=== PATIENT | female | born 1960 | race Caucasian/White ===

== ENCOUNTER 2020-10-19 06:42 | Emergency (ER) | payer OTHER ==
[~2020-10-19] VITALS: Ht 167.6 cm; Wt 90.7 kg
[~2020-10-19 06:42] MED LIST: ACETAMINOPHEN325 M1 PO; AUGMENTIN 875875 M1 PO; B-100 COMPLEX1 EAC1 PO; CALICUM 500+D1 EACH PO; COLACE 100 MG100 MG PO; COMBIVENT INH; FRUIT C-100100 MG PO; HYDROCODON-ACE1 EAC7 PO; LIPITOR80 MG PO; MULTIVITAMINS1 EAC7 PO; NIACIN 100MG T100 M1 PO; VITAMIN C 250250 MG PO
[2020-10-19] MEDS ORDERED: HYDROCODON-ACE1 EAC7 PO (08:08)
[2020-10-19 08:51] VITALS: BP 153/104
--- NOTE | 2020-10-19 09:05 | NUR ---
cm spk w/pt to explain hh process. pt agreeable to use [facility]. cm copied pt insurance card and sent required documents to [facility] [phone]. cm provided pt w/[facility] to schedule pcp appt, as pt's pcp "[place]." [phone]. pt informed [facility] will contact her directly to arrange visits.
== END 2020-10-19 08:51 | disposition home or self-care (01) ==
LOC: M.ERS 06:42
DX: S93.491A Sprain of other ligament of right ankle, initial encounter (principal); E78.00 Pure hypercholesterolemia, unspecified; Z90.49 Acquired absence of other specified parts of digestive tract; Z88.8 Allergy status to other drugs, medicaments and biological substances; W07.XXXA Fall from chair, initial encounter; Y93.89 Activity, other specified; Y92.89 Other specified places as the place of occurrence of the external cause; Y99.8 Other external cause status

== ENCOUNTER 2021-08-10 10:13 | Inpatient (IN) | payer OTHER ==
[~2021-08-10] VITALS: Ht 167.6 cm; Wt 102.1 kg
[2021-08-10 10:22] VITALS: BP 138/76
[2021-08-10] MEDS ORDERED: LIPITOR10 MG PO (10:26)
[2021-08-10] MEDS ORDERED: STEROID (10:26)
[2021-08-10] MEDS ORDERED: CRESTOR10 MG PO (10:26)
[2021-08-10] MEDS ORDERED: CANCER MED (10:26)
[2021-08-10 10:48] LABS: HEMATOCRIT 42.1 % (37.0-47.0); MCH 31.1 pg (26.0-34.0); MCHC 33.3 g/dL (28.0-37.0); MCV 93.2 fL (80.0-100.0); NUCLEATED RBCS 0 /100WBC; PLATELET COUNT* 258 thou/uL (150-400); RBC 4.52 mil/uL (4.20-5.00); RDW-CV 14.3 % (10.5-14.5); WBC 18.1 thou/uL (4.0-11.0)
[2021-08-10 10:53] LABS: CALCIUM 9.1 mg/dL (8.5-10.1); POTASSIUM 3.6 mmol/L (3.5-5.1)
[2021-08-10 10:57] LABS: ALBUMIN 3.3 g/dL (3.4-5.0); TOTAL BILIRUBIN 1.2 mg/dL (<0.1-1.0); TOTAL PROTEIN 6.8 g/dL (6.4-8.2)
[2021-08-10 13:13] LABS: ABSOLUTE LYMPHOCYTES 1.6 thou/uL (0.8-5.3); ABSOLUTE MONOCYTES 0.9 thou/uL (0.0-1.2); ABSOLUTE NEUTROPHILS 15.6 thou/uL (1.6-8.1); PLATELET ESTIMATE ADEQUATE
[2021-08-10 13:24] VITALS: BP 134/89
[2021-08-10 14:07] VITALS: BP 138/72
[2021-08-10 19:22] LABS: URINE BILIRUBIN NEGATIVE (Negative); URINE BLOOD NEGATIVE (Negative); URINE CLARITY CLEAR; URINE COLOR YELLOW; URINE GLUCOSE-RANDOM NEGATIVE (Negative); URINE KETONES NEGATIVE (Negative); URINE LEUKOCYTES NEGATIVE (Negative); URINE NITRITE NEGATIVE (Negative); URINE PROTEIN NEGATIVE (Negative); URINE SPECIFIC GRAVITY 1.025 (1.005-1.030); URINE UROBILINOGEN 0.2 E.U./dl (0.2-1.0)
[2021-08-10 19:32] LABS: AMP/METHAMP Negative (Negative); BARBITURATES Negative (Negative); BENZODIAZEPINES Negative (Negative); COCAINE Negative (Negative); METHADONE Negative (Negative); OPIATES Negative (Negative); PCP Negative (Negative); THC Negative (Negative)
[2021-08-10 20:30] VITALS: BP 121/61
[2021-08-11 08:00] VITALS: BP 139/74
[2021-08-11 09:12] LABS: ABSOLUTE BASOPHILS 0.1 thou/uL (0.0-0.2); ABSOLUTE EOSINOPHILS 0.1 thou/uL (0.0-0.7); ABSOLUTE LYMPHOCYTES 1.8 thou/uL (0.8-5.3); ABSOLUTE MONOCYTES 1.3 thou/uL (0.0-1.2); ABSOLUTE NEUTROPHILS 15.3 thou/uL (1.6-8.1); BASOPHILS 0.5 %; EOSINOPHILS 0.8 %; HEMATOCRIT 38.2 % (37.0-47.0); HEMOGLOBIN 12.6 gm/dL (12.0-15.0); LYMPHOCYTES 9.5 %; MCH 30.8 pg (26.0-34.0); MCHC 32.9 g/dL (28.0-37.0); MCV 93.5 fL (80.0-100.0); MONOCYTES 7.2 %; NUCLEATED RBCS 0 /100WBC; PLATELET COUNT* 219 thou/uL (150-400); RBC 4.09 mil/uL (4.20-5.00); RDW-CV 14.9 % (10.5-14.5); WBC 18.7 thou/uL (4.0-11.0)
[2021-08-11 09:21] LABS: CALCIUM 8.7 mg/dL (8.5-10.1); CREATININE 0.9 mg/dL (0.6-1.3); POTASSIUM 3.5 mmol/L (3.5-5.1)
[2021-08-11 21:00] VITALS: BP 106/73
[2021-08-12 06:42] LABS: HEMATOCRIT 35.4 % (37.0-47.0); HEMOGLOBIN 11.8 gm/dL (12.0-15.0); MCH 30.5 pg (26.0-34.0); MCHC 33.3 g/dL (28.0-37.0); MCV 91.6 fL (80.0-100.0); MPV 7.1 fl. (7.2-11.1); RBC 3.87 mil/uL (4.20-5.00); RDW-CV 14.4 % (10.5-14.5); WBC 15.5 thou/uL (4.0-11.0)
[2021-08-12 06:52] LABS: CALCIUM 8.4 mg/dL (8.5-10.1)
[2021-08-12 07:30] VITALS: BP 104/71
[2021-08-12 16:00] VITALS: BP 111/69
[2021-08-12 19:30] VITALS: BP 112/72
[2021-08-13 07:43] LABS: HEMATOCRIT 32.6 % (37.0-47.0); HEMOGLOBIN 10.9 gm/dL (12.0-15.0); MCH 30.7 pg (26.0-34.0); MCHC 33.5 g/dL (28.0-37.0); MCV 91.8 fL (80.0-100.0); MPV 7.5 fl. (7.2-11.1); RBC 3.55 mil/uL (4.20-5.00); RDW-CV 14.6 % (10.5-14.5); WBC 11.6 thou/uL (4.0-11.0)
[2021-08-13 07:53] LABS: CALCIUM 8.3 mg/dL (8.5-10.1); CREATININE 0.9 mg/dL (0.6-1.3); POTASSIUM 3.7 mmol/L (3.5-5.1)
[2021-08-13 09:00] VITALS: BP 118/74
[2021-08-13 16:47] VITALS: BP 144/92
[2021-08-13 20:00] VITALS: BP 126/71
[2021-08-14 08:00] VITALS: BP 138/81
[2021-08-14 08:30] VITALS: BP 138/81
[2021-08-14 16:00] VITALS: BP 119/75
[2021-08-14 20:00] VITALS: BP 123/77
[2021-08-15 04:35] LABS: HEMATOCRIT 34.3 % (37.0-47.0); HEMOGLOBIN 11.5 gm/dL (12.0-15.0); MCH 30.7 pg (26.0-34.0); MCHC 33.6 g/dL (28.0-37.0); MCV 91.3 fL (80.0-100.0); MPV 6.6 fl. (7.2-11.1); RBC 3.76 mil/uL (4.20-5.00); RDW-CV 14.6 % (10.5-14.5)
[2021-08-15 05:12] LABS: CALCIUM 8.9 mg/dL (8.5-10.1); CREATININE 0.9 mg/dL (0.6-1.3); POTASSIUM 3.5 mmol/L (3.5-5.1)
[2021-08-15 07:40] VITALS: BP 130/82
[2021-08-15 15:57] VITALS: BP 115/74
[2021-08-15 19:52] VITALS: BP 130/92
[2021-08-16 05:24] LABS: CREATININE 0.9 mg/dL (0.6-1.3); POTASSIUM 3.6 mmol/L (3.5-5.1)
[2021-08-16 05:35] LABS: HEMATOCRIT 35.9 % (37.0-47.0); HEMOGLOBIN 11.9 gm/dL (12.0-15.0); MCH 30.3 pg (26.0-34.0); MCHC 33.1 g/dL (28.0-37.0); MCV 91.6 fL (80.0-100.0); MPV 6.6 fl. (7.2-11.1); RBC 3.92 mil/uL (4.20-5.00); RDW-CV 14.4 % (10.5-14.5); WBC 10.1 thou/uL (4.0-11.0)
[2021-08-16 10:34] VITALS: BP 148/94
[2021-08-16 15:54] VITALS: BP 118/74
[2021-08-16 20:19] VITALS: BP 118/75
[2021-08-17 07:50] VITALS: BP 120/84
[2021-08-17] MEDS ORDERED: PERCOCET PO (11:16)
[2021-08-17] MEDS ORDERED: CEPHALEXIN 250250 M1 PO (11:16)
[2021-08-17 16:02] VITALS: BP 111/74
[2021-08-17 22:48] VITALS: BP 107/72
[2021-08-18 08:00] VITALS: BP 119/79
[2021-08-18] MEDS ORDERED: GABAPENTIN 100100 MG PO (09:05)
[2021-08-18] MEDS ORDERED: PERCOCET PO (09:05)
[2021-08-18] MEDS ORDERED: PREDNISONE 1 MG1 M1 PO (09:05)
[2021-08-18 16:00] VITALS: BP 124/83
[2021-08-18 20:56] VITALS: BP 146/91
[2021-08-19 08:00] VITALS: BP 128/83
[2021-08-19 16:04] VITALS: BP 119/79
[2021-08-19 19:42] VITALS: BP 110/71
[2021-08-20 08:00] VITALS: BP 111/76
[2021-08-20 16:34] VITALS: BP 115/79
[2021-08-20 20:02] VITALS: BP 113/72
[2021-08-21 08:00] VITALS: BP 109/78
[2021-08-21] MEDS ORDERED: PREDNISONE 1 MG1 M1 PO (13:20)
[2021-08-22 08:00] VITALS: BP 109/70
== END 2021-08-22 17:21 | DRG 872 ==
LOC: M.ERS 10:13 → M.TBA-ER 11:38 → M.3W 11:38
PROVIDERS: Internal Medicine; Physician Assistant; ADMIT Internal Medicine; ATTEND Internal Medicine
DX: A41.9 Sepsis, unspecified organism (principal); L03.115 Cellulitis of right lower limb; Z20.822 Contact with and (suspected) exposure to COVID-19; Z79.899 Other long term (current) drug therapy; E87.6 Hypokalemia; Z85.110 Personal history of malignant carcinoid tumor of bronchus and lung; Z87.891 Personal history of nicotine dependence; Z88.8 Allergy status to other drugs, medicaments and biological substances; Z91.048 Other nonmedicinal substance allergy status; Z92.21 Personal history of antineoplastic chemotherapy; Z68.36 Body mass index [BMI] 36.0-36.9, adult; E66.01 Morbid (severe) obesity due to excess calories; Z90.49 Acquired absence of other specified parts of digestive tract